=== PATIENT | female | born 1980 | race African-American/Black ===

== ENCOUNTER 2016-12-25 21:45 | Emergency (ER) | payer OTHER ==
[~2016-12-25] VITALS: Ht 162.6 cm; Wt 85.7 kg
[~2016-12-25 21:45] MED LIST: DOXY100C9 PO; HYDR-4446 PO; PREN-385 PO
[2016-12-25 22:00] VITALS: BP 136/69
--- NOTE | 2016-12-25 22:18 | NUR ---
TO ER BED 7
--- NOTE | 2016-12-25 22:36 | NUR ---
36Y/F PATIENT PRESENTS TO ED WITH C/O LT. ARM PAIN X 3 WKS . PT STATES PAIN STARTED WHEN SHE WOKE UP AND STILL EXIST; SKIN IS PINK/WARM/DRY; AAOX4 WITH EVEN AND STEADY GAIT; LUNGS CLEAR BL; HR EVEN AND REGULAR; PT DENIES ANY FEVER, CP, SOB, OR COUGH AT THIS TIME; PATIENT STATES PAIN OF 6/10 AT THIS TIME; VSS; PATIENT POSITIONED FOR COMFORT; HOB ELEVATED; BEDRAILS UP X2; BED DOWN. ER MD MADE AWARE OF PT STATUS.
--- NOTE | 2016-12-25 23:15 | NUR ---
Patient being evaluated by DR. ALICEA at bedside.
[2016-12-25] MEDS ORDERED: KETOROLAC 60 MG/2 ML VIAL IM ONE ×2 (23:25→23:39)
--- NOTE | 2016-12-25 23:50 | NUR ---
Patient discharged with v/s stable. Written and verbal after care instructions given and explained. Patient alert, oriented and verbalized understanding of instructions. Ambulatory with steady gait. All questions addressed prior to discharge. ID band removed. Patient advised to follow up with PMD. Rx of TRAMADOL 50 MG, MOTRIN 800 MG given. Patient educated on indication of medication including possible reaction and side effects. Opportunity to ask questions provided and answered.
[2016-12-25 23:51] VITALS: BP 132/80
== END 2016-12-25 23:50 | disposition home or self-care (01) ==
LOC: MED 21:45
DX: G56.91 Unspecified mononeuropathy of right upper limb (principal)
CPT/HCPCS: 73030; 73080; 96372; 99284; J1885

== ENCOUNTER 2022-09-14 15:13 | Emergency (ER) | payer OTHER ==
[~2022-09-14] VITALS: Ht 162.6 cm; Wt 111.1 kg
[~2022-09-14 15:13] MED LIST changes: +ACET-8905 PO; +DOXY-690 PO; -DOXY100C9 PO; -HYDR-4446 PO
[2022-09-14 15:17] VITALS: BP 195/118
--- NOTE | 2022-09-14 15:24 | NUR ---
PT AMB TO BED 11.
--- NOTE | 2022-09-14 15:31 | NUR ---
Patient being evaluated by DR JOSEPH at bedside.
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
[2022-09-14] MEDS ORDERED: IBUP-2213 PO (15:55)
== END 2022-09-14 15:55 | disposition home or self-care (01) ==
LOC: MED 15:13
DX: R07.9 Chest pain, unspecified (principal); R06.02 Shortness of breath; F17.200 Nicotine dependence, unspecified, uncomplicated; Z79.899 Other long term (current) drug therapy
CPT/HCPCS: 71045; 99283; Q0092

== ENCOUNTER 2023-07-27 14:41 | Inpatient (IN) | payer OTHER ==
[~2023-07-27] VITALS: Ht 162.6 cm; Wt 93.9 kg
[~2023-07-27 14:41] MED LIST changes: +IBUP-2213 PO
[2023-07-27 14:49] VITALS: BP 156/113; PULSE 99; RESP 18; TEMP 98.5; O2SAT 98
[2023-07-27 15:44] LABS: BASOPHILS # (AUTO) 0.1 K/uL (0.00-0.22); BASOPHILS % (AUTO) 0.6 % (0.0-2.0); EOSINOPHILS # (AUTO) 0.2 K/uL (0-0.4); EOSINOPHILS % (AUTO) 1.6 % (0.0-4.0); HEMATOCRIT 30.7 % (36-48); HEMOGLOBIN 9.9 g/dL (12.0-16.0); LYMPHOCYTES # (AUTO) 1.5 K/uL (2.5-16.5); LYMPHOCYTES % (AUTO) 15.1 % (20.5-51.1); MEAN CORPUSCULAR HEMOGLOBIN 24 pg (27-31); MEAN CORPUSCULAR HGB CONC 32 g/dL (33-37); MEAN CORPUSCULAR VOLUME 73.8 fL (80-94); MONOCYTES # (AUTO) 0.7 K/uL (0.8-1.0); MONOCYTES % (AUTO) 7.1 % (1.7-9.3); NEUTROPHILS # (AUTO) 7.5 K/uL (1.8-7.7); NEUTROPHILS % (AUTO) 75.6 % (42.2-75.2); PLATELET COUNT (AUTO) 379 K/uL (140-450); RED BLOOD CELL COUNT(AUTO) 4.16 MIL/uL (4.20-5.40)
[2023-07-27 15:47] LABS: APPEARANCE,URINE CLEAR (CLEAR); BILIRUBIN,URINE NEGATIVE (NEGATIVE); BLOOD, URINE NEGATIVE (NEGATIVE); COLOR,URINE YELLOW (YELLOW); LEUKOCYTE ESTERASE ,URINE 1+ (NEGATIVE); NITRITE, URINE POSITIVE (NEGATIVE); PROTEIN,URINE NEGATIVE (NEGATIVE); UGLUCOSE NEGATIVE (NEGATIVE); UROBILINOGEN,URINE 0.2 EU/dL (0.2 - 1)
[2023-07-27 15:51] LABS: ANION GAP 11.2 (8-16); CALCIUM 8.5 mg/dL (8.5-10.1); CARBON DIOXIDE 26.6 mmol/L (21-32); CREATININE 0.9 mg/dL (0.6-1.3); POTASSIUM 3.8 mmol/L (3.5-5.1)
[2023-07-27 15:53] LABS: RBC,URINE 0-5 /HPF (0-5)
[2023-07-27 15:54] LABS: BACTERIA,URINE 3+ /HPF (None Seen); MUCUS,URINE 1+ /LPF (None Seen); SQUAMOUS EPITHELIAL CELL,UR 20-50 /LPF (0-3 (FEW)); TRICHOMONAS,URINE None Seen /HPF (None Seen); YEAST,URINE None Seen /HPF (None Seen)
[2023-07-27 15:55] LABS: INR 0.97 (0.8-1.2); PARTIAL THROMBOPLASTIN TIME 29.4 secs (22-35.6); PROTHROMBIN TIME 10.2 secs (10.8-13.4)
[2023-07-27 15:58] LABS: ALANINE AMINOTRANSFERASE 21 U/L (12-78); ALBUMIN 2.3 g/dL (3.4-5.0); ALKALINE PHOSPHATASE 70 U/L (50-136); ASPARTATE AMINOTRANSFERASE 8 U/L (15-37); TOTAL BILIRUBIN 0.2 mg/dL (0.0-1.0); TOTAL PROTEIN, SERUM 6.6 g/dL (6.4-8.2)
[2023-07-27] MEDS ORDERED: ASPIRIN 325 MG TAB PO ONE (16:15)
[2023-07-27] MEDS ORDERED: cefTRIAXone 1,000 MG VIAL ONE (16:24)
[2023-07-27 20:52] VITALS: BP 141/76; PULSE 92; PULSE 97; RESP 18; TEMP 98.2; O2SAT 99
[2023-07-28] VITALS (7 sets, daily range): BP systolic 122–148; BP diastolic 66–88; PULSE 82–100; RESP 16–18; TEMP 97.6–98.3; O2SAT 97–100
[2023-07-28 07:24] LABS: BASOPHILS # (AUTO) 0.1 K/uL (0.00-0.22); BASOPHILS % (AUTO) 0.9 % (0.0-2.0); EOSINOPHILS # (AUTO) 0.1 K/uL (0-0.4); EOSINOPHILS % (AUTO) 1.8 % (0.0-4.0); HEMATOCRIT 33.3 % (36-48); HEMOGLOBIN 10.9 g/dL (12.0-16.0); LYMPHOCYTES # (AUTO) 1.7 K/uL (2.5-16.5); LYMPHOCYTES % (AUTO) 20.8 % (20.5-51.1); MEAN CORPUSCULAR HEMOGLOBIN 24 pg (27-31); MEAN CORPUSCULAR HGB CONC 33 g/dL (33-37); MEAN CORPUSCULAR VOLUME 72.7 fL (80-94); MONOCYTES # (AUTO) 0.8 K/uL (0.8-1.0); MONOCYTES % (AUTO) 9.3 % (1.7-9.3); NEUTROPHILS # (AUTO) 5.4 K/uL (1.8-7.7); NEUTROPHILS % (AUTO) 67.2 % (42.2-75.2); PLATELET COUNT (AUTO) 405 K/uL (140-450); RED BLOOD CELL COUNT(AUTO) 4.58 MIL/uL (4.20-5.40); RED CELL DISTRIBUTION WIDTH 16.7 % (11.6-13.7); WHITE BLOOD COUNT (AUTO) 8.1 K/uL (4.8-10.8)
[2023-07-28 07:51] LABS: ALBUMIN 2.4 g/dL (3.4-5.0); ANION GAP 13.2 (8-16); CARBON DIOXIDE 23.9 mmol/L (21-32); CREATININE 0.8 mg/dL (0.6-1.3); POTASSIUM 4.1 mmol/L (3.5-5.1); TOTAL BILIRUBIN 0.4 mg/dL (0.0-1.0); TOTAL PROTEIN, SERUM 7.1 g/dL (6.4-8.2)
[2023-07-28 08:03] LABS: CHOL/HDL RATIO 3.1 (1-4.5); THYROID STIMULATING HORMONE 0.56 uIU/mL (0.34-3.74)
[2023-07-28] MEDS: ATORVASTATIN 20 MG TAB PO SCH (11:05)
[2023-07-28] MEDS: CLOPIDOGREL 75 MG TAB PO SCH (11:05)
[2023-07-28] MEDS: ASPIRIN 81 MG TAB.CHEW PO SCH (11:06)
[2023-07-29] VITALS: BP 136/85; PULSE 101; RESP 16; TEMP 98; O2SAT 96
[2023-07-29 04:00] VITALS: BP 138/90; PULSE 102; PULSE 103; RESP 16; TEMP 98.5; O2SAT 100
[2023-07-29 07:12] LABS: HEMOGLOBIN 11.2 g/dL (12.0-16.0); RED BLOOD CELL COUNT(AUTO) 4.72 MIL/uL (4.20-5.40); WHITE BLOOD COUNT (AUTO) 9.8 K/uL (4.8-10.8)
[2023-07-29 07:18] LABS: BASOPHILS # (AUTO) 0.1 K/uL (0.00-0.22); BASOPHILS % (AUTO) 0.6 % (0.0-2.0); EOSINOPHILS # (AUTO) 0.2 K/uL (0-0.4); EOSINOPHILS % (AUTO) 1.9 % (0.0-4.0); HEMATOCRIT 34.3 % (36-48); LYMPHOCYTES # (AUTO) 1.7 K/uL (2.5-16.5); LYMPHOCYTES % (AUTO) 17.5 % (20.5-51.1); MEAN CORPUSCULAR HEMOGLOBIN 24 pg (27-31); MEAN CORPUSCULAR HGB CONC 33 g/dL (33-37); MEAN CORPUSCULAR VOLUME 72.8 fL (80-94); MONOCYTES # (AUTO) 0.9 K/uL (0.8-1.0); MONOCYTES % (AUTO) 9.3 % (1.7-9.3); NEUTROPHILS # (AUTO) 6.9 K/uL (1.8-7.7); NEUTROPHILS % (AUTO) 70.7 % (42.2-75.2); PLATELET COUNT (AUTO) 416 K/uL (140-450); RED CELL DISTRIBUTION WIDTH 17.1 % (11.6-13.7)
[2023-07-29 07:44] LABS: ALBUMIN 2.4 g/dL (3.4-5.0); ANION GAP 12.7 (8-16); CALCIUM 8.9 mg/dL (8.5-10.1); CARBON DIOXIDE 25.4 mmol/L (21-32); POTASSIUM 4.1 mmol/L (3.5-5.1); TOTAL BILIRUBIN 0.2 mg/dL (0.0-1.0); TOTAL PROTEIN, SERUM 8.3 g/dL (6.4-8.2)
[2023-07-29 08:00] VITALS: BP 145/94; PULSE 89; PULSE 95; RESP 16; TEMP 97.2; O2SAT 97
[2023-07-29 08:08] LABS: FOLIC ACID 10.8 ng/mL (>3.0)
[2023-07-29] MEDS: ATORVASTATIN 20 MG TAB PO SCH (09:04)
[2023-07-29] MEDS: ASPIRIN 81 MG TAB.CHEW PO SCH (09:04)
[2023-07-29] MEDS: CLOPIDOGREL 75 MG TAB PO SCH (09:04)
[2023-07-29 12:00] VITALS: BP 150/94; PULSE 95; RESP 16; TEMP 97.8; O2SAT 98
[2023-07-29 16:00] VITALS: BP 139/87; PULSE 95; RESP 16; TEMP 97.6; O2SAT 98
[2023-07-29 20:00] VITALS: BP 135/89; PULSE 87; RESP 18; TEMP 98.8; O2SAT 100
[2023-07-30] VITALS: BP 122/72; PULSE 103; RESP 18; TEMP 97.6; O2SAT 100
[2023-07-30 04:00] VITALS: BP 120/75; PULSE 92; RESP 18; TEMP 98.6; O2SAT 98
[2023-07-30 07:25] LABS: BASOPHILS # (AUTO) 0.1 K/uL (0.00-0.22); BASOPHILS % (AUTO) 0.7 % (0.0-2.0); EOSINOPHILS # (AUTO) 0.3 K/uL (0-0.4); EOSINOPHILS % (AUTO) 3.3 % (0.0-4.0); HEMOGLOBIN 11.1 g/dL (12.0-16.0); LYMPHOCYTES # (AUTO) 2.1 K/uL (2.5-16.5); LYMPHOCYTES % (AUTO) 25.8 % (20.5-51.1); MEAN CORPUSCULAR HEMOGLOBIN 24 pg (27-31); MEAN CORPUSCULAR HGB CONC 33 g/dL (33-37); MEAN CORPUSCULAR VOLUME 72.9 fL (80-94); MONOCYTES # (AUTO) 0.7 K/uL (0.8-1.0); MONOCYTES % (AUTO) 9.1 % (1.7-9.3); NEUTROPHILS % (AUTO) 61.1 % (42.2-75.2); PLATELET COUNT (AUTO) 449 K/uL (140-450); RED BLOOD CELL COUNT(AUTO) 4.66 MIL/uL (4.20-5.40); WHITE BLOOD COUNT (AUTO) 8.1 K/uL (4.8-10.8)
[2023-07-30 07:51] LABS: ANION GAP 13.7 (8-16); CALCIUM 8.9 mg/dL (8.5-10.1); CARBON DIOXIDE 23.6 mmol/L (21-32); CREATININE 0.8 mg/dL (0.6-1.3); POTASSIUM 4.3 mmol/L (3.5-5.1)
[2023-07-30 08:00] VITALS: BP 134/87; PULSE 90; PULSE 97; RESP 18; TEMP 97; O2SAT 97
[2023-07-30 08:05] LABS: ALBUMIN 2.4 g/dL (3.4-5.0); TOTAL PROTEIN, SERUM 7.5 g/dL (6.4-8.2)
[2023-07-30] MEDS: ASPIRIN 81 MG TAB.CHEW PO SCH (08:38)
[2023-07-30] MEDS: ATORVASTATIN 20 MG TAB PO SCH (08:38)
[2023-07-30] MEDS: CLOPIDOGREL 75 MG TAB PO SCH (08:39)
[2023-07-30 09:59] LABS: TOTAL BILIRUBIN 0.2 mg/dL (0.0-1.0)
[2023-07-30] MEDS ORDERED: CLOP75TA55 PO (11:27)
[2023-07-30] MEDS ORDERED: CIPR500T4 PO (11:27)
[2023-07-30] MEDS ORDERED: ASPI81CT95 PO (11:27)
[2023-07-30] MEDS ORDERED: ATOR20TA40 PO (11:27)
[2023-07-30 12:00] VITALS: BP 145/85; PULSE 88; PULSE 95; RESP 16; TEMP 96.4; O2SAT 97
[2023-07-30 16:00] VITALS: PULSE 92
[2023-07-30 16:28] VITALS: BP 134/87; PULSE 90; RESP 18; TEMP 97
== END 2023-07-30 17:05 | disposition home or self-care (01) | DRG 47 ==
LOC: MED 14:41 → MTU 17:27
PROVIDERS: ADMIT Family Medicine; ATTEND Family Medicine
DX: G45.9 Transient cerebral ischemic attack, unspecified (principal); E43 Unspecified severe protein-calorie malnutrition; G81.91 Hemiplegia, unspecified affecting right dominant side; N39.0 Urinary tract infection, site not specified; E66.01 Morbid (severe) obesity due to excess calories; Z68.35 Body mass index [BMI] 35.0-35.9, adult; J45.909 Unspecified asthma, uncomplicated; R29.701 NIHSS score 1
CPT/HCPCS: 36415; 70450; 71045; 80048; 80053; 80076; 81001; 82607; 82746; 82948; 83036; 84443; 84484; 85025; 85610; 85730; 86592; 86886; 86900; 86901; 87081; 87086; 92526; 93005; 96374; 97116; 99291; J0696; J7060; Q9967

== ENCOUNTER 2023-11-21 13:28 | Emergency (ER) | payer OTHER ==
[~2023-11-21] VITALS: Ht 162.6 cm; Wt 94.3 kg
[~2023-11-21 13:28] MED LIST changes: -ACET-8905 PO; +ASPI81CT95 PO; +ATOR20TA40 PO; +CIPR500T4 PO; +CLOP75TA55 PO; -DOXY-690 PO; -IBUP-2213 PO; -PREN-385 PO
[2023-11-21 13:34] VITALS: BP 149/95; PULSE 98; RESP 18; TEMP 97.8; O2SAT 100
[2023-11-21] MEDS: KETOROLAC 60 MG/2 ML VIAL IM ONE (14:32)
[2023-11-21] MEDS ORDERED: CEPH-588 PO (14:35)
[2023-11-21] MEDS ORDERED: IBUP-2213 PO (14:35)
[2023-11-21 14:59] VITALS: BP 149/95; PULSE 98; RESP 18; TEMP 97.8; O2SAT 100
== END 2023-11-21 14:59 | disposition home or self-care (01) ==
LOC: MED 13:28
DX: L03.116 Cellulitis of left lower limb (principal); L03.115 Cellulitis of right lower limb; Z79.899 Other long term (current) drug therapy
CPT/HCPCS: 96372; 99283; J1885

== ENCOUNTER 2024-01-11 20:31 | Emergency (ER) | payer OTHER ==
[~2024-01-11] VITALS: Ht 162.6 cm; Wt 90.7 kg
[~2024-01-11 20:31] MED LIST changes: +CEPH-588 PO; +IBUP-2213 PO
[2024-01-11 20:32] VITALS: BP 146/90; PULSE 112; RESP 22; TEMP 98; O2SAT 99
[2024-01-11 21:00] VITALS: BP 146/90; PULSE 112; RESP 22; TEMP 98; O2SAT 98
[2024-01-12 00:15] LABS: BARBITURATE, URINE NEGATIVE ng/ml (NEG <=200)
[2024-01-12 00:16] LABS: AMPHETAMINE, URINE POSITIVE ng/ml (NEG <=1000); BENZODIAZEPINE, URINE NEGATIVE ng/mL (NEG <=200); CANNABINOID, URINE POSITIVE ng/mL (NEG <=50); COCAINE, URINE NEGATIVE ng/mL (NEG <=300); OPIATE, URINE NEGATIVE ng/mL (NEG <=2000); PHENCYCLIDINE SCREEN,URINE POSITIVE ng/mL (NEG <=25)
== END 2024-01-12 00:55 | disposition home or self-care (01) ==
LOC: MED 20:31
DX: F19.10 Other psychoactive substance abuse, uncomplicated (principal); F12.90 Cannabis use, unspecified, uncomplicated; Z79.82 Long term (current) use of aspirin; Z79.1 Long term (current) use of non-steroidal anti-inflammatories (NSAID); Z79.2 Long term (current) use of antibiotics; Z79.899 Other long term (current) drug therapy; Z91.018 Allergy to other foods
CPT/HCPCS: 80305; 81025; 99283

== ENCOUNTER 2024-01-18 06:49 | Inpatient (IN) | payer OTHER ==
[~2024-01-18] VITALS: Ht 162.6 cm; Wt 98.4 kg
[2024-01-18 06:54] VITALS: BP 160/104; PULSE 113; RESP 18; TEMP 98; O2SAT 98
[2024-01-18] MEDS ORDERED: AMPICILLIN/SULBACTAM 3 GM VIAL ONE ×2 (08:06→13:32)
[2024-01-18] MEDS: NACL 0.9% 1,000 ML IV ONE (08:14)
[2024-01-18] MEDS: KETOROLAC 30 MG/ML VIAL IVP ONE (08:15)
[2024-01-18] MEDS: DEXAMETHASONE 10 MG/ML VIAL IVP ONE (08:15)
[2024-01-18] MEDS: AMPICILLIN/SULBACTAM 3 GM in NACL 0.9% 100 ML IV ONE (08:24)
[2024-01-18 08:41] LABS: BASOPHILS # (AUTO) 0.1 K/uL (0.00-0.22); BASOPHILS % (AUTO) 0.6 % (0.0-2.0); EOSINOPHILS # (AUTO) 0.4 K/uL (0-0.4); EOSINOPHILS % (AUTO) 2.6 % (0.0-4.0); HEMATOCRIT 32.5 % (36-48); LYMPHOCYTES # (AUTO) 2.4 K/uL (2.5-16.5); LYMPHOCYTES % (AUTO) 16.3 % (20.5-51.1); MEAN CORPUSCULAR HEMOGLOBIN 22 pg (27-31); MEAN CORPUSCULAR HGB CONC 31 g/dL (33-37); MEAN CORPUSCULAR VOLUME 69.8 fL (80-94); MONOCYTES # (AUTO) 0.7 K/uL (0.8-1.0); MONOCYTES % (AUTO) 4.8 % (1.7-9.3); NEUTROPHILS % (AUTO) 75.7 % (42.2-75.2); PLATELET COUNT (AUTO) 486 K/uL (140-450); RED BLOOD CELL COUNT(AUTO) 4.65 MIL/uL (4.20-5.40); RED CELL DISTRIBUTION WIDTH 19.9 % (11.6-13.7); WHITE BLOOD COUNT (AUTO) 14.6 K/uL (4.8-10.8)
[2024-01-18 08:52] LABS: ANION GAP 13.5 (8-16); CARBON DIOXIDE 26.5 mmol/L (21-32)
[2024-01-18 08:56] LABS: ALBUMIN 2.9 g/dL (3.4-5.0); INR 0.9 (0.8-1.2); PARTIAL THROMBOPLASTIN TIME 23.3 secs (22-35.6); PROTHROMBIN TIME 9.5 secs (10.8-13.4); TOTAL BILIRUBIN 0.4 mg/dL (0.0-1.0); TOTAL PROTEIN, SERUM 7.8 g/dL (6.4-8.2)
[2024-01-18 09:02] LABS: LACTIC ACID 0.8 mmol/L (0.4-2.0)
[2024-01-18] MEDS ORDERED: LORazepam 1 MG TAB PO PRN (10:30)
[2024-01-18] MEDS ORDERED: ONDANSETRON 4 MG/2 ML VIAL IVP PRN (10:30)
[2024-01-18] MEDS ORDERED: ACETAMINOPHEN 325 MG TAB PO PRN (10:30)
[2024-01-18] MEDS ORDERED: ZOLPIDEM 5 MG TAB PO PRN (10:30)
[2024-01-18] MEDS: NACL 0.9% 1,000 ML IV SCH (11:37)
[2024-01-18] MEDS ORDERED: AMPICILLIN/SULBACTAM 3 GM VIAL IM SCH (12:00)
[2024-01-18] MEDS: AMPICILLIN/SULBACTAM 3 GM in NACL 0.9% 100 ML IV SCH (13:35)
[2024-01-18] MEDS: AMPICILLIN/SULBACTAM 3 GM VIAL ONE ×2 (18:40→23:09)
[2024-01-18 20:00] VITALS: BP 155/100; PULSE 99; RESP 18; TEMP 97.5; O2SAT 100
[2024-01-19] MEDS: AMPICILLIN/SULBACTAM 3 GM VIAL ONE (05:19)
[2024-01-19 07:05] LABS: BASOPHILS % (AUTO) 0.1 % (0.0-2.0); EOSINOPHILS % (AUTO) 0.1 % (0.0-4.0); HEMATOCRIT 29.4 % (36-48); HEMOGLOBIN 9.1 g/dL (12.0-16.0); LYMPHOCYTES # (AUTO) 1.9 K/uL (2.5-16.5); LYMPHOCYTES % (AUTO) 11.5 % (20.5-51.1); MEAN CORPUSCULAR HEMOGLOBIN 22 pg (27-31); MEAN CORPUSCULAR HGB CONC 31 g/dL (33-37); MEAN CORPUSCULAR VOLUME 69.9 fL (80-94); MONOCYTES # (AUTO) 0.8 K/uL (0.8-1.0); MONOCYTES % (AUTO) 4.8 % (1.7-9.3); NEUTROPHILS # (AUTO) 13.4 K/uL (1.8-7.7); NEUTROPHILS % (AUTO) 83.5 % (42.2-75.2); PLATELET COUNT (AUTO) 469 K/uL (140-450); RED CELL DISTRIBUTION WIDTH 19.4 % (11.6-13.7); WHITE BLOOD COUNT (AUTO) 16.1 K/uL (4.8-10.8)
[2024-01-19 07:19] LABS: ALBUMIN 2.4 g/dL (3.4-5.0); ANION GAP 11.6 (8-16); CALCIUM 8.2 mg/dL (8.5-10.1); CARBON DIOXIDE 24.3 mmol/L (21-32); CREATININE 0.9 mg/dL (0.6-1.3); POTASSIUM 3.9 mmol/L (3.5-5.1); TOTAL BILIRUBIN 0.2 mg/dL (0.0-1.0); TOTAL PROTEIN, SERUM 6.5 g/dL (6.4-8.2)
[2024-01-19 08:00] VITALS: BP 161/100; PULSE 89; RESP 17; TEMP 98.9; O2SAT 98
[2024-01-19] MEDS: DOCUSATE SODIUM 100 MG GELCAP PO SCH (08:10)
[2024-01-19] MEDS: ASPIRIN 81 MG TAB.CHEW PO SCH (09:00)
[2024-01-19] MEDS: ATORVASTATIN 20 MG TAB PO SCH (09:00)
[2024-01-19] MEDS: lisinopriL 10 MG TAB PO SCH (09:00)
[2024-01-19] MEDS: CLOPIDOGREL 75 MG TAB PO SCH (10:54)
[2024-01-19 18:49] VITALS: BP 148/66; PULSE 95; RESP 18; TEMP 98.1; O2SAT 100
[2024-01-19 20:00] VITALS: BP 145/97; PULSE 89; PULSE 99; RESP 17; RESP 18; TEMP 97.6; TEMP 98.9; O2SAT 100; O2SAT 98
[2024-01-20 07:03] LABS: BASOPHILS # (AUTO) 0.1 K/uL (0.00-0.22); BASOPHILS % (AUTO) 0.6 % (0.0-2.0); EOSINOPHILS # (AUTO) 0.2 K/uL (0-0.4); EOSINOPHILS % (AUTO) 1.9 % (0.0-4.0); HEMATOCRIT 30.1 % (36-48); HEMOGLOBIN 9.6 g/dL (12.0-16.0); LYMPHOCYTES # (AUTO) 2.6 K/uL (2.5-16.5); LYMPHOCYTES % (AUTO) 27.2 % (20.5-51.1); MEAN CORPUSCULAR HEMOGLOBIN 22 pg (27-31); MEAN CORPUSCULAR HGB CONC 32 g/dL (33-37); MEAN CORPUSCULAR VOLUME 69.4 fL (80-94); MONOCYTES # (AUTO) 0.7 K/uL (0.8-1.0); MONOCYTES % (AUTO) 7.2 % (1.7-9.3); NEUTROPHILS # (AUTO) 6.1 K/uL (1.8-7.7); NEUTROPHILS % (AUTO) 63.1 % (42.2-75.2); PLATELET COUNT (AUTO) 446 K/uL (140-450); RED BLOOD CELL COUNT(AUTO) 4.33 MIL/uL (4.20-5.40); RED CELL DISTRIBUTION WIDTH 19.2 % (11.6-13.7); WHITE BLOOD COUNT (AUTO) 9.7 K/uL (4.8-10.8)
[2024-01-20 07:33] LABS: ALBUMIN 2.4 g/dL (3.4-5.0); ANION GAP 11.5 (8-16); CALCIUM 8.3 mg/dL (8.5-10.1); CARBON DIOXIDE 25.4 mmol/L (21-32); CREATININE 0.9 mg/dL (0.6-1.3); POTASSIUM 3.9 mmol/L (3.5-5.1); TOTAL BILIRUBIN 0.3 mg/dL (0.0-1.0); TOTAL PROTEIN, SERUM 6.7 g/dL (6.4-8.2)
[2024-01-20 08:00] VITALS: BP 150/99; PULSE 77; PULSE 96; RESP 18; TEMP 97.2; O2SAT 96
[2024-01-20] MEDS ORDERED: IBUP-2213 PO (10:20)
[2024-01-20] MEDS ORDERED: AMOX-999 PO (10:20)
[2024-01-20 11:10] VITALS: BP 150/99; PULSE 77; RESP 18; TEMP 97.2
== END 2024-01-20 15:10 | disposition home or self-care (01) | DRG 720 ==
LOC: MED 06:49 → MMU 10:32 → MTU 15:35
PROVIDERS: ADMIT Student in an Organized Health Care Education/Training Program; ATTEND Student in an Organized Health Care Education/Training Program
DX: A41.9 Sepsis, unspecified organism (principal); E44.1 Mild protein-calorie malnutrition; F19.10 Other psychoactive substance abuse, uncomplicated; I10 Essential (primary) hypertension; J36 Peritonsillar abscess; Z86.73 Personal history of transient ischemic attack (TIA), and cerebral infarction without residual deficits; Z79.899 Other long term (current) drug therapy; Z68.37 Body mass index [BMI] 37.0-37.9, adult; B95.0 Streptococcus, group A, as the cause of diseases classified elsewhere
CPT/HCPCS: 36415; 70491; 80048; 80053; 80076; 83605; 84703; 85025; 85610; 85730; 87040; 87081; 96365; 96375; 99291; J0295; J1100; J1885; Q9967

== ENCOUNTER 2024-01-21 04:30 | Emergency (ER) | payer OTHER ==
[~2024-01-21] VITALS: Ht 162.6 cm; Wt 113.4 kg
[~2024-01-21 04:30] MED LIST changes: +AMOX-999 PO; -CEPH-588 PO; -CIPR500T4 PO
[2024-01-21 04:38] VITALS: BP 138/85; PULSE 82; RESP 18; TEMP 98.8; O2SAT 98
[2024-01-21] MEDS: MORPHINE SULFATE 4 MG/ML SYR IM ONE (05:07)
[2024-01-21 05:09] VITALS: O2SAT 97
[2024-01-21 05:56] VITALS: BP 138/85; PULSE 82; RESP 18; TEMP 98.8; O2SAT 97
== END 2024-01-21 05:56 | disposition home or self-care (01) ==
LOC: MED 04:30
DX: J02.9 Acute pharyngitis, unspecified (principal); F17.200 Nicotine dependence, unspecified, uncomplicated; F15.90 Other stimulant use, unspecified, uncomplicated; Z79.899 Other long term (current) drug therapy; Z79.01 Long term (current) use of anticoagulants; Z79.82 Long term (current) use of aspirin; Z91.018 Allergy to other foods
CPT/HCPCS: 96372; 99283; J2270

== ENCOUNTER 2024-04-27 02:59 | Emergency (ER) | payer OTHER ==
[~2024-04-27] VITALS: Ht 162.6 cm; Wt 99.3 kg
[2024-04-27 03:03] VITALS: BP 169/104; PULSE 102; RESP 20; TEMP 97.4; O2SAT 100
[2024-04-27 03:54] LABS: BASOPHILS # (AUTO) 0.1 K/uL (0.00-0.22); BASOPHILS % (AUTO) 0.9 % (0.0-2.0); EOSINOPHILS # (AUTO) 0.4 K/uL (0-0.4); EOSINOPHILS % (AUTO) 5.6 % (0.0-4.0); HEMATOCRIT 29.6 % (36-48); HEMOGLOBIN 9.4 g/dL (12.0-16.0); LYMPHOCYTES # (AUTO) 1.3 K/uL (2.5-16.5); LYMPHOCYTES % (AUTO) 16.7 % (20.5-51.1); MEAN CORPUSCULAR HEMOGLOBIN 22 pg (27-31); MEAN CORPUSCULAR HGB CONC 32 g/dL (33-37); MEAN CORPUSCULAR VOLUME 67.8 fL (80-94); MONOCYTES # (AUTO) 0.7 K/uL (0.8-1.0); NEUTROPHILS # (AUTO) 5.2 K/uL (1.8-7.7); NEUTROPHILS % (AUTO) 67.8 % (42.2-75.2); PLATELET COUNT (AUTO) 341 K/uL (140-450); RED BLOOD CELL COUNT(AUTO) 4.36 MIL/uL (4.20-5.40); RED CELL DISTRIBUTION WIDTH 18.5 % (11.6-13.7); WHITE BLOOD COUNT (AUTO) 7.6 K/uL (4.8-10.8)
[2024-04-27 04:06] LABS: ANION GAP 8.7 (8-16); CALCIUM 8.4 mg/dL (8.5-10.1); CARBON DIOXIDE 28.1 mmol/L (21-32); POTASSIUM 3.8 mmol/L (3.5-5.1)
[2024-04-27 04:18] LABS: TOTAL BILIRUBIN 0.2 mg/dL (0.0-1.0)
[2024-04-27 04:19] LABS: ALANINE AMINOTRANSFERASE 25 U/L (12-78); ALBUMIN 2.9 g/dL (3.4-5.0); ALKALINE PHOSPHATASE 97 U/L (50-136); ASPARTATE AMINOTRANSFERASE 18 U/L (15-37); BILIRUBIN,DIRECT 0.1 mg/dL (0.0-0.3)
[2024-04-27 04:27] LABS: AMPHETAMINE, URINE POSITIVE ng/ml (NEG <=1000); APPEARANCE,URINE CLEAR (CLEAR); BARBITURATE, URINE NEGATIVE ng/ml (NEG <=200); BENZODIAZEPINE, URINE NEGATIVE ng/mL (NEG <=200); BILIRUBIN,URINE NEGATIVE (NEGATIVE); BLOOD, URINE NEGATIVE (NEGATIVE); CANNABINOID, URINE POSITIVE ng/mL (NEG <=50); COCAINE, URINE NEGATIVE ng/mL (NEG <=300); COLOR,URINE YELLOW (YELLOW); LEUKOCYTE ESTERASE ,URINE NEGATIVE (NEGATIVE); NITRITE, URINE NEGATIVE (NEGATIVE); OPIATE, URINE NEGATIVE ng/mL (NEG <=2000); PH,URINE 6.5 (5.0-9.0); PHENCYCLIDINE SCREEN,URINE POSITIVE ng/mL (NEG <=25); PROTEIN,URINE NEGATIVE (NEGATIVE); UGLUCOSE NEGATIVE (NEGATIVE); UROBILINOGEN,URINE 0.2 EU/dL (0.2 - 1)
[2024-04-27] MEDS ORDERED: BENZ200C4 PO (04:34)
[2024-04-27 04:38] VITALS: BP 169/104; PULSE 102; RESP 20; TEMP 97.4; O2SAT 100
== END 2024-04-27 04:38 | disposition home or self-care (01) ==
LOC: MED 02:59
DX: R05.9 Cough, unspecified (principal); R07.9 Chest pain, unspecified; F12.90 Cannabis use, unspecified, uncomplicated; F15.90 Other stimulant use, unspecified, uncomplicated; F19.90 Other psychoactive substance use, unspecified, uncomplicated; Z79.899 Other long term (current) drug therapy; Z79.82 Long term (current) use of aspirin; Z79.01 Long term (current) use of anticoagulants; Z91.018 Allergy to other foods
CPT/HCPCS: 36415; 71045; 80048; 80076; 80305; 81003; 83880; 84484; 85025; 85379; 93005; 99285; Q0092